=== PATIENT | male | born 2000 | race Hispanic/Latino ===

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

== ENCOUNTER 2022-04-02 12:45 | Emergency (ER) | payer OTHER ==
[2022-04-02] MEDS ORDERED: Ketorolac Tromethamine 30 MG/ML VIAL ONE (14:39)
== END 2022-04-02 14:54 | disposition home or self-care (01) ==
LOC: ERS 12:45
DX: S06.0X0A Concussion without loss of consciousness, initial encounter (principal); S00.83XA Contusion of other part of head, initial encounter; W22.8XXA Striking against or struck by other objects, initial encounter
CPT/HCPCS: 70450; 96372; J1885

== ENCOUNTER 2022-05-12 19:57 | Emergency (ER) | payer OTHER ==
[2022-05-12] MEDS ORDERED: Ondansetron PF 4 MG/2 ML Vial ONE (22:05)
== END 2022-05-12 23:20 | disposition home or self-care (01) ==
LOC: ERS 19:57
DX: S06.0X9A Concussion with loss of consciousness of unspecified duration, initial encounter (principal); Y08.09XA Assault by strike by other specified type of sport equipment, initial encounter
CPT/HCPCS: 70450; 72125; 93005; 96361; 96374; J2405

== ENCOUNTER 2022-05-15 01:37 | Emergency (ER) | payer OTHER ==
[2022-05-15] MEDS ORDERED: Oxymetazoline HCl 0.05% (30 ML BOT) ONE (01:47)
== END 2022-05-15 02:11 | disposition home or self-care (01) ==
LOC: ERS 01:37
DX: R04.0 Epistaxis (principal)
CPT/HCPCS: 99283

== ENCOUNTER 2022-09-25 16:25 | Emergency (ER) | payer OTHER ==
[2022-09-25 17:08] LABS: Actual Bicarbonate (HCO3v) 24 mEq/L (22-28); Base Excess 1.3 mEq/L (-2.0 to +3.0); Calcium, Ionized (venous) 1.11 mmol/L (1.16-1.32); Chloride (VBG) 105 mmol/L (98-106); Hemoglobin (Hb) 15.2 g/dL (13.2-17.3); Potassium (VBG) 3.64 mmol/L (3.70-5.30); Sodium 138.8 mmol/L (133-146); pH (venous) 7.47 (7.32-7.43)
[2022-09-25 17:10] LABS: #Basophils 0.1 thou/uL (0.0-0.2); #Eosinphils 0.3 thou/uL (0.0-0.7); #Lymphocytes 2.7 thou/uL (1.20-3.40); #Monocytes 0.8 thou/uL (0.11-0.59); #Neutrophils 5.8 thou/uL (1.40-6.50); %Basophils 0.6 % (0.0-1.0); %Eosinophils 3.4 % (0.0-10.0); %Lymphocytes 27.8 % (28.0-48.0); %Monocytes 7.9 % (0.0-4.0); %Neutrophils 60.2 % (31.0-61.0); Hemoglobin 14.3 g/dL (14.0-18.0); Mean Corpuscular HGB CONC 33.7 g/dL (32.0-36.0); Mean Corpuscular Hemoglobin 31.1 pg (25.0-35.0); Mean Corpuscular Volume 92.3 fl (78.0-98.0); Mean Platelet Volume 7.6 fL (7.4-10.4); Platelet Count 269 10x3/uL (130-400); RBC Distribution Width 11.5 % (11.5-14.5); Red Blood Cell (RBC) Count 4.59 mill/uL (4.00-5.20); White Blood Cell (WBC) Count 9.6 10x3/uL (4.8-10.8)
[2022-09-25 17:28] LABS: Alcohol Less than 10 mg/dL (Less than 10); Salicylate Less than 8.0 mg/dL (15.0-30.0)
[2022-09-25 17:29] LABS: ALT (SGPT) 20 U/L (8-55); AST (SGOT) 17 U/L (5-34); Albumin 4.2 g/dL (3.5-5.0); Alkaline Phosphatase 52 U/L (50-130); Anion Gap 13 mmol/L (10-20); BUN (Urea Nitrogen) 10 mg/dL (8.9-20.6); Bilirubin, Total 0.5 mg/dL (0.2-1.2); Calc. Creatinine Clearance 0 mL/min (70-130); Calcium 9.2 mg/dL (7.8-10.44); Carbon Dioxide 22 mmol/L (22-29); Chloride 107 mmol/L (98-107); Estimated GFR 131; Globulin 2.8 g/dL (2.4-3.5); Glucose 104 mg/dL (70-105); Potassium 3.6 mmol/L (3.5-5.1); Sodium 138 mmol/L (136-145)
[2022-09-25 17:48] LABS: Bilirubin Negative (Negative); Blood, Urine Negative (Negative); Clarity Clear (Clear); Glucose, Urine (Dipstick) Normal (Negative); Ketone, Urine Negative (Negative); Leukocyte Negative Leu/uL (Negative); Nitrite Negative (Negative); Protein, Urine (Dipstick) Negative (Neg-Trace); Specific Gravity, Urine 1.008 (1.002-1.036); Urobilinogen Normal mg/dL (Less than 2)
[2022-09-25 17:54] LABS: Amphetamine Not Detected (NotDetected); Barbiturates Screen Not Detected (NotDetected); Benzodiazepine Screen Not Detected (NotDetected); Cocaine Metabolite Screen Not Detected (NotDetected); Methadone Not Detected (NotDetected); Methamphetamine Not Detected (NotDetected); Opiate Screen Not Detected (NotDetected); Oxycodone Screen Not Detected (NotDetected); Phencyclidine (PCP) Not Detected (NotDetected); THC/Cannabinoid Screen Not Detected (NotDetected); Tricyclic Screen Not Detected (NotDetected)
[2022-09-25] MEDS ORDERED: Ondansetron PF 4 MG/2 ML Vial ONE (20:02)
[2022-09-25 20:21] LABS: Alcohol Less than 10 mg/dL (Less than 10); Salicylate Less than 8.0 mg/dL (15.0-30.0)
[2022-09-26 02:08] LABS: SARS-CoV-2 NAA Rapid Test Not Detected (NotDetected)
== END 2022-09-26 08:48 ==
LOC: ERS 16:25
DX: T39.1X2A Poisoning by 4-Aminophenol derivatives, intentional self-harm, initial encounter (principal); Z20.822 Contact with and (suspected) exposure to COVID-19
CPT/HCPCS: 36415; 80053; 80306; 80307; 81003; 82805; 85025; 93005; 96374; J2405; U0002

== ENCOUNTER 2023-08-10 08:04 | Emergency (ER) | payer OTHER ==
[2023-08-10] MEDS ORDERED: Ibuprofen 200 MG TAB ONE (08:21)
[2023-08-10] MEDS ORDERED: Acetaminophen 500 MG TAB ONE (08:21)
[2023-08-10 09:24] LABS: SARS-CoV-2 NAA Rapid Test DETECTED (NotDetected)
== END 2023-08-10 09:48 | disposition home or self-care (01) ==
LOC: ERS 08:04
DX: U07.1 COVID-19 (principal)
CPT/HCPCS: 99283

== ENCOUNTER 2023-11-13 10:05 | Emergency (ER) | payer OTHER ==
[2023-11-13 11:05] LABS: #Basophils 0.1 thou/uL (0.0-0.2); #Eosinphils 0.3 thou/uL (0.0-0.7); #Monocytes 1.2 thou/uL (0.11-0.59); #Neutrophils 9.8 thou/uL (1.40-6.50); %Basophils 0.5 % (0.0-1.0); %Eosinophils 2.2 % (0.0-10.0); %Lymphocytes 16.3 % (21.0-51.0); %Neutrophils 71.8 % (42.0-75.0); Hematocrit 43.7 % (42.0-52.0); Hemoglobin 15.2 g/dL (14.0-18.0); Mean Corpuscular HGB CONC 34.8 g/dL (32.0-36.0); Mean Corpuscular Hemoglobin 31.5 pg (27.0-31.0); Mean Corpuscular Volume 90.5 fl (78.0-98.0); Platelet Count 261 10x3/uL (130-400); RBC Distribution Width 12.5 % (11.5-14.5); Red Blood Cell (RBC) Count 4.83 mill/uL (4.70-6.10); White Blood Cell (WBC) Count 13.6 10x3/uL (4.8-10.8)
[2023-11-13] MEDS ORDERED: CEFAZOLIN 2 GM VIAL ONE (11:12)
[2023-11-13] MEDS ORDERED: Ketorolac Tromethamine 30 MG (1 mL) VIAL ONE (11:12)
[2023-11-13] MEDS ORDERED: Sodium Chloride 0.9% 100 ML ONE (11:12)
[2023-11-13 11:23] LABS: ALT (SGPT) 12 U/L (8-55); AST (SGOT) 16 U/L (5-34); Albumin 4.7 g/dL (3.5-5.0); Alkaline Phosphatase 61 U/L (40-110); Anion Gap 14 mmol/L (10-20); BUN (Urea Nitrogen) 23 mg/dL (8.9-20.6); Bilirubin, Total 1.3 mg/dL (0.2-1.2); Calc. Creatinine Clearance 0 mL/min (70-130); Calcium 9.9 mg/dL (7.8-10.44); Carbon Dioxide 25 mmol/L (22-29); Chloride 103 mmol/L (98-107); Estimated GFR 127; Globulin 3.3 g/dL (2.4-3.5); Glucose 92 mg/dL (70-105); Potassium 4.4 mmol/L (3.5-5.1); Sodium 138 mmol/L (136-145)
== END 2023-11-13 12:24 | disposition home or self-care (01) ==
LOC: ERS 10:05
DX: M71.10 Other infective bursitis, unspecified site (principal)
CPT/HCPCS: 36415; 80053; 83605; 85025; 87040; 96365; 96375; J1885; J3490

== ENCOUNTER 2024-02-21 21:44 | Emergency (ER) | payer OTHER ==
[2024-02-21] MEDS ORDERED: Ketorolac Tromethamine 30 MG (1 mL) VIAL ONE (22:33)
== END 2024-02-21 22:59 | disposition home or self-care (01) ==
LOC: ERS 21:44
DX: M79.605 Pain in left leg (principal); W20.8XXA Other cause of strike by thrown, projected or falling object, initial encounter
CPT/HCPCS: 96372; 99283; J1885